=== PATIENT | male | born 1955 | race African-American/Black ===

== ENCOUNTER 2016-04-18 08:50 | Emergency (ER) | payer OTHER ==
[2016-04-18] MEDS ORDERED: Acetaminophen/Codeine 120-12MG/5 ML UDCUP ONE (09:26)
[2016-04-18] MEDS ORDERED: HYDROcodone/Acetaminophen 10/325 mg Tablet ONE (09:26)
[2016-04-18] MEDS ORDERED: AMOXicillin 250 MG CAP ONE (09:27)
[2016-04-18] MEDS ORDERED: Phenergan/Codeine 10-6.25mg/5ml UDCUP ONE (09:34)
== END 2016-04-18 10:07 | disposition home or self-care (01) ==
LOC: MADERS 08:50
DX: J20.9 Acute bronchitis, unspecified (principal); E11.9 Type 2 diabetes mellitus without complications; F32.9 Major depressive disorder, single episode, unspecified; F17.210 Nicotine dependence, cigarettes, uncomplicated; Z86.73 Personal history of transient ischemic attack (TIA), and cerebral infarction without residual deficits
CPT/HCPCS: 99283

== ENCOUNTER 2016-05-05 18:30 | Emergency (ER) | payer OTHER ==
[2016-05-05] MEDS ORDERED: HYDROcodone/Acetaminophen 10/325 mg Tablet ONE (19:03)
[2016-05-05] MEDS ORDERED: Diazepam 10 MG/2 ML SYRINGE ONE (19:04)
[2016-05-05] MEDS ORDERED: Diazepam 5 MG TAB ONE (19:04)
== END 2016-05-05 19:10 | disposition home or self-care (01) ==
LOC: MADERS 18:30
DX: G89.18 Other acute postprocedural pain (principal); M54.2 Cervicalgia; E11.9 Type 2 diabetes mellitus without complications; E78.5 Hyperlipidemia, unspecified; F17.210 Nicotine dependence, cigarettes, uncomplicated
CPT/HCPCS: 99282; J3360

== ENCOUNTER 2016-06-13 18:29 | Emergency (ER) | payer OTHER | END 2016-06-13 18:55 | disposition home or self-care (01) | LOC: MADERS 18:29 | DX: M77.9 Enthesopathy, unspecified (principal); E11.9 Type 2 diabetes mellitus without complications; K57.92 Diverticulitis of intestine, part unspecified, without perforation or abscess without bleeding; E78.5 Hyperlipidemia, unspecified; Z86.73 Personal history of transient ischemic attack (TIA), and cerebral infarction without residual deficits; F32.9 Major depressive disorder, single episode, unspecified; F17.210 Nicotine dependence, cigarettes, uncomplicated; Z79.899 Other long term (current) drug therapy; Z79.82 Long term (current) use of aspirin | CPT/HCPCS: 99283 ==

== ENCOUNTER 2016-07-12 03:13 | Emergency (ER) | payer OTHER ==
[2016-07-12] MEDS ORDERED: predniSONE 20 MG TAB ONE (03:54)
[2016-07-12] MEDS ORDERED: Colchicine 0.6 MG TAB ONE ×2 (03:59→09:51)
[2016-07-12] MEDS ORDERED: HYDROcodone/Acetaminophen 10/325 mg Tablet ONE (04:02)
--- NOTE | 2016-07-12 08:16 | RAD ---
LEFT KNEE FOUR VIEWS: History: Joint pain. FINDINGS: There is ossification in the region of the origin of the medial collateral ligament suggesting old m edial collateral ligament injury. There is medial compartment narrowing. 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 There is no significant joint effusion. IMPRESSION: 1. Arthritic changes of the knee. 2. Bipartite patella. POS: [facility]
== END 2016-07-12 04:10 | disposition home or self-care (01) ==
LOC: MADERS 03:13
DX: M10.9 Gout, unspecified (principal); E11.9 Type 2 diabetes mellitus without complications; E78.5 Hyperlipidemia, unspecified; F32.9 Major depressive disorder, single episode, unspecified; F17.210 Nicotine dependence, cigarettes, uncomplicated; Z86.73 Personal history of transient ischemic attack (TIA), and cerebral infarction without residual deficits; Z79.84 Long term (current) use of oral hypoglycemic drugs; Z79.02 Long term (current) use of antithrombotics/antiplatelets; Z79.899 Other long term (current) drug therapy; Z79.891 Long term (current) use of opiate analgesic
CPT/HCPCS: J7506

== ENCOUNTER 2016-09-17 12:54 | Emergency (ER) | payer OTHER | END 2016-09-17 14:13 | disposition home or self-care (01) | LOC: MADERS 12:54 | DX: M10.9 Gout, unspecified (principal); E78.5 Hyperlipidemia, unspecified; E11.9 Type 2 diabetes mellitus without complications; F32.9 Major depressive disorder, single episode, unspecified; I69.851 Hemiplegia and hemiparesis following other cerebrovascular disease affecting right dominant side; K57.92 Diverticulitis of intestine, part unspecified, without perforation or abscess without bleeding; N40.0 Benign prostatic hyperplasia without lower urinary tract symptoms; R56.9 Unspecified convulsions; Z79.84 Long term (current) use of oral hypoglycemic drugs; Z79.899 Other long term (current) drug therapy | CPT/HCPCS: 99283 ==

== ENCOUNTER 2016-10-10 16:02 | Emergency (ER) | payer OTHER ==
[2016-10-10] MEDS ORDERED: HYDROcodone/Acetaminophen 10/325 mg Tablet ONE (16:28)
== END 2016-10-10 16:45 | disposition home or self-care (01) ==
LOC: MADERS 16:02
DX: M17.12 Unilateral primary osteoarthritis, left knee (principal); E11.9 Type 2 diabetes mellitus without complications; E78.5 Hyperlipidemia, unspecified; F32.9 Major depressive disorder, single episode, unspecified; Z86.73 Personal history of transient ischemic attack (TIA), and cerebral infarction without residual deficits; Z79.891 Long term (current) use of opiate analgesic; Z79.84 Long term (current) use of oral hypoglycemic drugs; Z79.02 Long term (current) use of antithrombotics/antiplatelets; Z79.899 Other long term (current) drug therapy
CPT/HCPCS: 99283

== ENCOUNTER 2016-10-15 18:09 | Emergency (ER) | payer OTHER ==
[2016-10-15] MEDS ORDERED: methylPREDNISolone Sod Succ/PF 125 MG/2 ML VIAL ONE (18:58)
[2016-10-15] MEDS ORDERED: traMADol HCl 50 MG TAB ONE (19:06)
[2016-10-15] MEDS ORDERED: Ondansetron ODT 4 MG TAB ONE (19:06)
== END 2016-10-15 19:12 | disposition home or self-care (01) ==
LOC: MADERS 18:09
DX: M19.90 Unspecified osteoarthritis, unspecified site (principal); E11.9 Type 2 diabetes mellitus without complications; N40.0 Benign prostatic hyperplasia without lower urinary tract symptoms; E78.5 Hyperlipidemia, unspecified; I69.351 Hemiplegia and hemiparesis following cerebral infarction affecting right dominant side; F32.9 Major depressive disorder, single episode, unspecified; F17.210 Nicotine dependence, cigarettes, uncomplicated; Z79.84 Long term (current) use of oral hypoglycemic drugs; Z79.899 Other long term (current) drug therapy
CPT/HCPCS: 99283; J2930; Q0162

== ENCOUNTER 2016-10-24 11:50 | Emergency (ER) | payer OTHER | END 2016-10-24 12:48 | disposition left against medical advice (07) | LOC: MADERS 11:50 | DX: M25.562 Pain in left knee (principal); E11.9 Type 2 diabetes mellitus without complications; E78.5 Hyperlipidemia, unspecified; F32.9 Major depressive disorder, single episode, unspecified; F17.210 Nicotine dependence, cigarettes, uncomplicated; I10 Essential (primary) hypertension; R56.9 Unspecified convulsions; N40.0 Benign prostatic hyperplasia without lower urinary tract symptoms; Z86.73 Personal history of transient ischemic attack (TIA), and cerebral infarction without residual deficits; Z79.51 Long term (current) use of inhaled steroids; Z79.899 Other long term (current) drug therapy; Z79.84 Long term (current) use of oral hypoglycemic drugs | CPT/HCPCS: 99283 ==

== ENCOUNTER 2016-10-31 21:05 | Emergency (ER) | payer OTHER | END 2016-10-31 23:00 | disposition left against medical advice (07) | LOC: MADERS 21:05 | DX: M25.562 Pain in left knee (principal); E11.9 Type 2 diabetes mellitus without complications; E78.5 Hyperlipidemia, unspecified; F32.9 Major depressive disorder, single episode, unspecified; F17.210 Nicotine dependence, cigarettes, uncomplicated; Z86.73 Personal history of transient ischemic attack (TIA), and cerebral infarction without residual deficits; Z79.02 Long term (current) use of antithrombotics/antiplatelets; Z79.84 Long term (current) use of oral hypoglycemic drugs; Z79.899 Other long term (current) drug therapy | CPT/HCPCS: 99283 ==

== ENCOUNTER 2017-01-31 01:05 | Emergency (ER) | payer OTHER ==
[2017-01-31] MEDS ORDERED: HYDROcodone/Acetaminophen 10/325 mg Tablet ONE (01:34)
== END 2017-01-31 01:50 | disposition home or self-care (01) ==
LOC: MADERS 01:05
DX: S39.012A Strain of muscle, fascia and tendon of lower back, initial encounter (principal); E11.9 Type 2 diabetes mellitus without complications; E78.5 Hyperlipidemia, unspecified; I10 Essential (primary) hypertension; J44.9 Chronic obstructive pulmonary disease, unspecified; I69.351 Hemiplegia and hemiparesis following cerebral infarction affecting right dominant side; F32.9 Major depressive disorder, single episode, unspecified; F17.210 Nicotine dependence, cigarettes, uncomplicated; N40.0 Benign prostatic hyperplasia without lower urinary tract symptoms; Z79.84 Long term (current) use of oral hypoglycemic drugs; Z79.899 Other long term (current) drug therapy; X50.1XXA Overexertion from prolonged static or awkward postures, initial encounter
CPT/HCPCS: 99283

== ENCOUNTER 2017-04-17 14:18 | Emergency (ER) | payer OTHER ==
[2017-04-17] MEDS ORDERED: MORPHINE 10 MG/ML SYRINGE ONE (15:21)
[2017-04-17] MEDS ORDERED: Ondansetron ODT 4 MG TAB ONE (15:23)
[2017-04-17] MEDS ORDERED: Diazepam 5 MG TAB ONE (15:23)
[2017-04-17] MEDS ORDERED: methylPREDNISolone Sod Succ/PF 125 MG/2 ML VIAL ONE (15:23)
== END 2017-04-17 15:35 | disposition home or self-care (01) ==
LOC: MADERS 14:18
DX: M54.5 Low back pain (principal); M10.9 Gout, unspecified; E11.9 Type 2 diabetes mellitus without complications; E78.5 Hyperlipidemia, unspecified; I10 Essential (primary) hypertension; J44.9 Chronic obstructive pulmonary disease, unspecified; F17.210 Nicotine dependence, cigarettes, uncomplicated; F32.9 Major depressive disorder, single episode, unspecified; Z79.899 Other long term (current) drug therapy
CPT/HCPCS: 96372; J2270; J2930; Q0162

== ENCOUNTER 2017-05-09 14:06 | Outpatient (CLI) | payer OTHER ==
--- NOTE | 2017-05-09 15:11 | RAD ---
LEFT KNEE FOUR VIEWS: History: 61-year-old male with history of anterior left knee pain. Comparison: 07-12-16 FINDINGS: Evidence for bipartite patella. Prominent calcified enthesophyte projecting caudally off the medial f emoral epicondylar region. Evidence for distended suprapatellar joint, evidence for joint effusion wi th joint effusion which is new. No acute fracture or dislocation. IMPRESSION: Evidence for suprapatellar joint fluid distention, evidence for effusion. No acute fracture. Stable b ipartite patella. Stable medial epicondylar enthesophyte. POS: C
== END 2017-05-09 14:07 | disposition home or self-care (01) ==
LOC: MADRAD 14:06
PROVIDERS: ATTEND Family Medicine
DX: M25.562 Pain in left knee (principal); Q74.1 Congenital malformation of knee

== ENCOUNTER 2018-04-21 18:00 | Emergency (ER) | payer OTHER | END 2018-04-21 19:34 | disposition home or self-care (01) | LOC: MADERS 18:00 | DX: H10.31 Unspecified acute conjunctivitis, right eye (principal); E11.9 Type 2 diabetes mellitus without complications; N40.0 Benign prostatic hyperplasia without lower urinary tract symptoms; E78.5 Hyperlipidemia, unspecified; I10 Essential (primary) hypertension; J44.9 Chronic obstructive pulmonary disease, unspecified; Z86.73 Personal history of transient ischemic attack (TIA), and cerebral infarction without residual deficits; F32.9 Major depressive disorder, single episode, unspecified; F17.210 Nicotine dependence, cigarettes, uncomplicated; Z79.899 Other long term (current) drug therapy | CPT/HCPCS: 99282 ==

== ENCOUNTER 2020-09-06 14:07 | Emergency (ER) | payer OTHER | END 2020-09-06 14:20 | disposition left against medical advice (07) | LOC: MADERS 14:07 | DX: Z53.21 Procedure and treatment not carried out due to patient leaving prior to being seen by health care provider (principal) ==

== ENCOUNTER 2021-10-08 11:48 | Outpatient (CLI) | payer OTHER | END 2021-10-08 11:49 | disposition home or self-care (01) | LOC: MADRAD 11:48 | PROVIDERS: ATTEND Family Medicine | DX: M25.561 Pain in right knee (principal); M25.562 Pain in left knee; M79.89 Other specified soft tissue disorders; M11.262 Other chondrocalcinosis, left knee; M17.12 Unilateral primary osteoarthritis, left knee | CPT/HCPCS: 73565 ==

== ENCOUNTER 2022-09-06 15:45 | Outpatient (CLI) | payer OTHER | END 2022-09-06 15:46 | disposition home or self-care (01) | LOC: MADRAD 15:45 | PROVIDERS: ATTEND Internal Medicine | DX: J44.9 Chronic obstructive pulmonary disease, unspecified (principal); G40.909 Epilepsy, unspecified, not intractable, without status epilepticus | CPT/HCPCS: 71046 ==